=== PATIENT | female | born 1945 | race Caucasian/White ===

== ENCOUNTER 2016-07-02 18:44 | Emergency (ER) | payer MEDICARE, OTHER | END 2016-07-02 20:20 | disposition home or self-care (01) | LOC: ER 18:44 | DX: D16.9 Benign neoplasm of bone and articular cartilage, unspecified (principal); M79.605 Pain in left leg; E11.9 Type 2 diabetes mellitus without complications; I10 Essential (primary) hypertension; F41.9 Anxiety disorder, unspecified; Z90.710 Acquired absence of both cervix and uterus; Z79.82 Long term (current) use of aspirin; Z79.84 Long term (current) use of oral hypoglycemic drugs; Z88.6 Allergy status to analgesic agent; Z88.8 Allergy status to other drugs, medicaments and biological substances | CPT/HCPCS: 73552-LT ==

== ENCOUNTER 2016-08-13 10:53 | Emergency (ER) | payer MEDICARE, OTHER | END 2016-08-13 15:30 | disposition other institution (70) | LOC: ER 10:53 | DX: S72.302A Unspecified fracture of shaft of left femur, initial encounter for closed fracture (principal); R62.7 Adult failure to thrive; J44.9 Chronic obstructive pulmonary disease, unspecified; E11.9 Type 2 diabetes mellitus without complications; I10 Essential (primary) hypertension; F41.9 Anxiety disorder, unspecified; Z90.710 Acquired absence of both cervix and uterus; Z79.82 Long term (current) use of aspirin; Z79.84 Long term (current) use of oral hypoglycemic drugs; Z88.6 Allergy status to analgesic agent; Z88.8 Allergy status to other drugs, medicaments and biological substances; X50.1XXA Overexertion from prolonged static or awkward postures, initial encounter | CPT/HCPCS: 36415; 73552-LT; 96361; 96374 ==